=== PATIENT | female | born 1935 | race Caucasian/White ===

== ENCOUNTER → 2016-10-19 | Outpatient (CLI) | payer MEDICARE, OTHER | END | disposition home or self-care (01) | LOC: RAD.S 14:50 | DX: Z12.31 Encounter for screening mammogram for malignant neoplasm of breast (principal) ==

== ENCOUNTER 2016-10-25 08:02 | Day surgery (SDC) | payer MEDICARE, OTHER ==
[~2016-10-25] VITALS: Ht 157.5 cm; Wt 63.0 kg
--- NOTE | 2016-10-26 08:27 | OR ---
ADMIT: 10/25/2016 RM/LOC: [facility] MR#: [id number] [address] [id number] GINA UNDERWOOD [address] [place] [address] Operative/Delivery Room Report SEX: F AGE: 81 : 1935 SURGERY DATE: 10/25/2016 SURGEON: Jose L Funk MD PROCEDURE: Total colonoscopy. PREOPERATIVE DIAGNOSIS: Colon polyps. POSTOPERATIVE DIAGNOSIS: Extensive left-sided diverticulosis. DESCRIPTION OF PROCEDURE: The patient was brought to procedure room and placed in left lateral decubitus position. Informed consent had been obtained preoperatively. The risks and benefits including, but not limited to, perforation, sedation, bleeding were discussed with the patient and agreed upon. All questions were answered, alternatives discussed, the patient agreed. Monitored anesthesia care was provided by Etienne Soto CRNA, with propofol. Anal inspection, digital examination revealed no abnormalities or obstructing masses. Olympus videoendoscope model CF-H180AL was inserted into the rectum and advanced to the cecum using positional change and external pressure. The appendiceal orifice and ileocecal valve were identified. Valve was cannulated. The terminal ileum appeared normal for approximately 15 cm. Scope was then slowly withdrawn through a normal cecum, ascending, and transverse colon. Descending and sigmoid, there were multiple wide-mouth diverticula without mucosal abnormalities. Rectum likewise was normal. Scope was retroflexed. The anal verge appeared normal. The patient tolerated the procedure well. No complications were expected. There was no blood loss. The patient will call me if she has any postoperative problems. Otherwise, due to her age, we would not recommend repeat colonoscopy unless signs or symptoms develop and it is recommended by her physician, Dr. Eladia Kumar. Jose L Funk MD/ jeremy JOB #: [id number] CC: Jose L Funk, Attending Physician Zulema Kumar, Family Physician Zulema Kumar MD
== END 2016-10-25 12:00 | disposition home or self-care (01) ==
LOC: SSS 08:02
PROC: 0DJD8ZZ Inspection of Lower Intestinal Tract, Via Natural or Artificial Opening Endoscopic (ICD-10-PCS; principal; 2016-10-25)
DX: K57.30 Diverticulosis of large intestine without perforation or abscess without bleeding (principal); I10 Essential (primary) hypertension; I25.10 Atherosclerotic heart disease of native coronary artery without angina pectoris; E78.00 Pure hypercholesterolemia, unspecified; Z90.49 Acquired absence of other specified parts of digestive tract; Z96.651 Presence of right artificial knee joint; Z90.710 Acquired absence of both cervix and uterus; Z96.643 Presence of artificial hip joint, bilateral; Z79.899 Other long term (current) drug therapy